=== PATIENT | male | born 1960 | race Caucasian/White ===

== ENCOUNTER → 2018-03-09 | Outpatient (CLI) | payer BC ==
--- NOTE | 2018-03-09 08:25 | CTL ---
EXAMINATION TYPE: CT Low Dose Lung DATE OF EXAM ORDERED: 03/09/2018 HISTORY: Tobacco use. Lung cancer screening CT DLP: 102.[address] CTDI: 2.70 mGy Automated exposure control for dose reduction was used. SCREENING VISIT: COMPARISON: TECHNIQUE: Low dose computed tomography scan was performed through the chest at 1 mm thick sections a nd reconstructed images in the coronal plane at [address] DIAGNOSTIC QUALITY: Satisfactory FINDINGS: LUNG NODULES: None. LUNGS: Diffuse emphysematous changes are seen. Areas of subsegmental linear changes suggestive of scar atele ctasis bilaterally and there is evidence of pleural thickening. No sizable pleural effusion or calcif ication. Basilar mild bronchiectasis noted. HEART: Heart is within normal upper limits in size and there is dense coronary artery calcification. No evid ence of pericardial effusion. OTHER FINDINGS: None IMPRESSION: 1. No pulmonary nodules identified. Findings are suggestive of discitis diffuse COPD. FOLLOW UP CT CHEST RECOMMENDATION: [address] LUNG RAD: Lung-Rad 2 Benign Appearance or Behavior
== END | disposition home or self-care (01) ==
LOC: RADCTMAIN 07:13
PROVIDERS: ATTEND Family Medicine
DX: Z12.2 Encounter for screening for malignant neoplasm of respiratory organs (principal); Z87.891 Personal history of nicotine dependence